=== PATIENT | male | born 1965 | race Caucasian/White ===

== ENCOUNTER 2020-12-04 05:42 | Outpatient (CLI) | payer BC ==
[~2020-12-04] VITALS: Ht 180.3 cm; Wt 85.5 kg
[~2020-12-04 05:42] MED LIST: FISH OIL PO; VITAMINS PO
== END 2020-12-07 09:26 | disposition home or self-care (01) ==
LOC: PREOP 05:42
PROVIDERS: ATTEND Internal Medicine
DX: Z01.818 Encounter for other preprocedural examination (principal)

== ENCOUNTER 2020-12-11 08:28 | Day surgery (SDC) | payer BC ==
[~2020-12-11] VITALS: Ht 180.3 cm; Wt 85.5 kg
[2020-12-11] MEDS ORDERED: LACTATED RINGERS 1,000 ML IV STA (08:31)
[2020-12-11] MEDS ORDERED: LACTATED RINGERS 1,000 ML IV ONE (08:33)
--- NOTE | 2020-12-11 08:43 | Pre-Op Note & Conscious Sedat ---
Pre-Operative Progress Note H&P Reviewed The H&P was reviewed, patient examined and no changes noted. Date H&P Reviewed: Dec 11, 2020 Time H&P Reviewed: 08:43 Conscious Sedation Pre-Proced ASA Score 2 For ASA 3 and 4: Consider anesthesia and medical clearance. Also, for patients with a history of failed moderate sedation consider anesthesia. Airway Lungs Heart ASA score ASA 1: a normal healthy patient ASA 2: a patient with a mild systemic disease (mid diabetes, controlled hypertension, obesity ASA 3: a patient with a severe systemic disease that limits activity (angina, COPD, prior Myocardial infarction) ASA 4: a patient with an incapacitating disease that is a constant threat to life (CHF, renal failure) ASA 5: a moribund patient not expected to survive 24 hrs. (ruptured aneurysm) ASA 6: a declared brain- patient whose organs are being harvested. For emergent operations, add the letter E after the classification Mallampati Classification Grade 1 Sedation Plan Analgesia, Amnesia, Plan communicated to team members, Discussed options with patient/fam, Discussed risks with patient/fam The patient is an appropriate candidate to undergo the planned procedure, sedation, and anesthesia. The patient immediately re-assessed prior to indication. CARLO LUNA MD Dec 11, 2020 08:43
[2020-12-11] MEDS ORDERED: LIDOCAINE JELLY 2% 6 ML SYRINGE MM PRN (08:45)
[2020-12-11 08:47] VITALS: BP 120/73
[2020-12-11] MEDS ORDERED: PROPOFOL INJECTION 50 ML IV ONE (09:05)
[2020-12-11] MEDS ORDERED: MIDAZOLAM 2 MG/2 ML (VERSED) VIAL ONE (09:05)
[2020-12-11 09:35] VITALS: BP 98/55
[2020-12-11 09:40] VITALS: BP 107/51
[2020-12-11 09:55] VITALS: BP 103/58
[2020-12-11 10:25] VITALS: BP 103/58
--- NOTE | 2020-12-11 13:45 | Anesthesia-General Post-Op ---
MAC Patient Condition Mental Status/LOC: Same as Preop Cardiovascular: Satisfactory Nausea/Vomiting: Absent Respiratory: Satisfactory Pain: Controlled Complications: Absent Post Op Complications Complications None Follow Up Care/Instructions Patient Instructions None needed. Anesthesiology Discharge Order Discharge Order Patient is doing well, no complaints, stable vital signs, no apparent adverse anesthesia problems. No complications reported per nursing. BENITO BAIRD CRNA Dec 11, 2020 13:45
--- NOTE | 2020-12-11 15:58 | OPERATIVE REPORT ---
DATE OF SERVICE: COLONOSCOPY SUMMARY INDICATION FOR PROCEDURE: Screening colonoscopy. PRIMARY CARE PROVIDER: Carlo Luna MD. DESCRIPTION OF PROCEDURE: The patient was placed in the left lateral decubitus position. Prior to undergoing a colonoscopy, digital rectal evaluation was performed. Anal sphincter tone was normal. The perianal reflexes intact. Prostate was anodular, nontender and unremarkable to digital inspection. There was evidence for a moderate size posterior prolapsed internal hemorrhoid, nonthrombosed at the 11 to 12 o'clock position. The colonoscope was then inserted into the rectum and under direct visualization advanced to the cecum. The cecum was identified by identification of the ileocecal valve. Photographic documentation was obtained. There was a small amount of solid stool in the cecum. Otherwise, quality of the prep was good. Several internal hemorrhoid complexes were noted, nonthrombosed with no evidence for external hemorrhoids. Most prominent being posterior at the 11 to 12 o'clock position prolapse. The rectum was otherwise unremarkable as was the sigmoid colon, descending colon, splenic flexure, transverse colon, hepatic flexure, ascending colon and cecum. ASSESSMENT: Normal colonoscopy to the cecum. A small amount of the cecum could not be visualized secondary to solid stool. Otherwise, the quality of the prep was good. Will advocate a 5 to 10 year surveillance colon interval. Job ID: [id number] DocumentID: [id number] Dictated Date: 12/11/2020 09:34:39 Onboarding Specialist Date: 12/11/2020 15:58:11 Dictated By: CAROL LUNA MD MTDD
== END 2020-12-11 10:25 | disposition home or self-care (01) ==
LOC: ENDO 08:28
PROVIDERS: ATTEND Internal Medicine
DX: Z12.11 Encounter for screening for malignant neoplasm of colon (principal); K64.8 Other hemorrhoids; Z83.71 Family history of colonic polyps; Z80.8 Family history of malignant neoplasm of other organs or systems